=== PATIENT | male | born 1990 | race Caucasian/White ===

== ENCOUNTER 2019-10-17 19:43 | Emergency (ER) | payer SELFPAY ==
--- NOTE | 2019-10-17 19:57 | EDM.PDOC ---
ED HPI GENERAL MEDICAL PROBLEM - General Stated Complaint: GROIN PAIN Time Seen by Provider: 10/17/19 19:47 Source of Information: Reports: Patient History Limitations: Reports: No Limitations - History of Present Illness INITIAL COMMENTS - FREE TEXT/NARRATIVE: Mr. Parish is a very pleasant 29-year-old gentleman with no chronic medical problems, who now presents to the ED stating that he developed left scrotal discomfort this past Tuesday night/Tuesday morning, . He noticed that the scrotum appeared to be swollen on Tuesday, and both the pain and swelling have progressively gotten worse since. No known injury to the area. He has not had a fever, and he denies having any urinary symptoms. He states that he has taken Tylenol or Advil for the discomfort, but he has not physically done anything to the scrotum, such as ice packs or soaks. The patient went to the walk-in clinic today, but was sent here without any testing being done. No prior similar symptoms. Here in the ED, the patient's initial BP is found to be elevated at 173/91, with an HR of 103 bpm, otherwise, the patient is afebrile, saturating 96% on room air. Other than the scrotal issue, the patient denies recent fever, chills, sore throat, ear pain, nasal or sinus congestion, cough, dyspnea, chest pain, palpitations, nausea, vomiting, constipation, diarrhea, abdominal pain, urinary symptoms, recent weight gain or weight loss, recent bloody bowel movements or black bowel movements, recent joint aches, headaches, or rashes. The patient has been working here for the past 2 months, but lives in [place]. He does not have a PCP. Left Scrotum Pain Score (Numeric/FACES): 8 - Related Data Allergies Allergy/AdvReac Type Severity Reaction Status Date / Time No Known Allergies Allergy Verified 10/17/19 19:56 Home Meds: Home Meds . [No Known Home Meds] 10/17/19 [History] Past Medical History Musculoskeletal History: Reports: Fracture (right 5th metacarpal) - Past Surgical History Musculoskeletal Surgical History: Reports: Other (See Below) (Right 5th metacarpal pinning) Social & Family History - Tobacco Use Smoking Status *Q: Current Every Day Smoker Years of Tobacco use: 13 Packs/Tins Daily: 1 - Alcohol Use Alcohol Use History: Yes Alcohol Use Frequency: Socially (occasionally to excess) - Recreational Drug Use Recreational Drug Use: No - Living Situation & Occupation Living situation: Reports: Single, with Significant Other (Girlfriend), with Family (2 kids) Occupation: Employed ([employer]) ED ROS GENERAL - Review of Systems Review Of Systems: Comprehensive ROS is negative, except as noted in HPI. ED EXAM, RENAL/ - Physical Exam Exam: See Below Exam Limited By: No Limitations General Appearance: Alert, WD/WN, No Apparent Distress (Male) Exam: No Hernia, Circumcised, Scrotal Swelling (inferior left, extending towards the left perineum, approximately 4 cm in length x 2 cm wide. Mildly erythematous. Tender. Due to tenderness, unable to appreciate if fluctuant vs indurated. There is no testicular swelling or tenderness, either side.). No: Inguinal Lymphadenopathy, Testicular Mass, Testicular Tenderness (L), Testicular Tenderness (R) Course - Vital Signs Last Recorded V/S: Last Vital Signs Temp 36.4 C 10/17/19 19:48 Pulse 103 H 10/17/19 19:48 Resp 18 10/17/19 19:48 BP 173/91 H 10/17/19 19:48 Pulse Ox 96 10/17/19 19:48 - Orders/Labs/Meds Orders: Active Orders 24 hr Category Date Time Status cefTRIAXone [Rocephin] 250 mg Med 10/17/19 22:30 Active Lidocaine 1% [Xylocaine-MPF 1%] 2 ml IM ONETIME Medication Orders Ceftriaxone Sodium 250 mg/ (Lidocaine HCl) 2 mls @ 100 mls/hr IM ONETIME ONE Stop: 10/17/19 22:31 Last Admin: 10/17/19 22:22 Dose: 100 mls/hr Documented by: KSENIA Labs: Laboratory Tests 10/17/19 10/17/19 10/17/19 Range/Units 20:14 20:14 20:20 WBC 10.47 H (4.23-9.07) K/mm3 RBC 5.28 (4.63-6.08) M/mm3 Hgb 15.9 (13.7-17.5) gm/dl Hct 46.9 (40.1-51.0) % MCV 88.8 (79.0-92.2) fl MCH 30.1 (25.7-32.2) pg MCHC 33.9 (32.2-35.5) g/dl RDW Std Deviation 41.3 (35.1-43.9) fL Plt Count 255 (163-337) K/mm3 MPV 9.4 (9.4-12.3) fl Neutrophils % (Manual) 81 H (40-60) % Band Neutrophils % 0 (0-10) % Lymphocytes % (Manual) 15 L (20-40) % Atypical Lymphs % 0 % Monocytes % (Manual) 4 (2-10) % Eosinophils % (Manual) 0 L (0.8-7.0) % Basophils % (Manual) 0 L (0.2-1.2) Platelet Estimate Adequate RBC Morph Comment Normal Sodium 140 (136-145) mEq/L Potassium 4.4 (3.5-5.1) mEq/L Chloride 104 (98-107) mEq/L Carbon Dioxide 25 (21-32) mEq/L Anion Gap 15.4 H (5-15) BUN 12 (7-18) mg/dL Creatinine 1.1 (0.7-1.3) mg/dL Est Cr Clr Drug Dosing 98.19 mL/min Estimated GFR (MDRD) > 60 (>60) mL/min BUN/Creatinine Ratio 10.9 L (14-18) Glucose 90 (74-106) mg/dL Lactic Acid 1.3 (0.4-2.0) mmol/L Calcium 8.8 (8.5-10.1) mg/dL Total Bilirubin 0.6 (0.2-1.0) mg/dL AST 26 (15-37) U/L ALT 49 (16-63) U/L Alkaline Phosphatase 71 (46-116) U/L Creatine Kinase 190 (39-308) U/L C-Reactive Protein 2.4 H* (<1.0) mg/dL Total Protein 7.3 (6.4-8.2) g/dl Albumin 3.9 (3.4-5.0) g/dl Globulin 3.4 gm/dL Albumin/Globulin Ratio 1.2 (1-2) Meds: Medications Generic Name Dose Route Start Last Admin Trade Name Freq PRN Reason Stop Dose Admin Ceftriaxone Sodium 250 mg/ 2 mls @ 100 mls/hr 10/17/19 22:30 10/17/19 22:22 Lidocaine HCl IM 10/17/19 22:31 100 mls/hr ONETIME ONE Administration Discontinued Medications Generic Name Dose Route Start Last Admin Trade Name Roel PRN Reason Stop Dose Admin Azithromycin 1,000 mg 10/17/19 21:48 10/17/19 22:23 Zithromax PO 10/17/19 21:49 1,000 mg ONETIME STA Administration Ampicillin Sodium/Sulbactam 100 mls @ 200 mls/hr 10/17/19 21:02 10/17/19 21:21 Sodium 3 gm/ Sodium Chloride IV 10/17/19 21:31 200 mls/hr ONETIME STA Administration - Re-Assessments/Exams Free Text/Narrative Re-Assessment/Exam: 10/17/19 20:03 As above, the patient has a tender swelling to the inferior left aspect of his scrotum. Because of its tenderness, I was not able to appreciate whether or not there is fluctuance. The biggest concern would be for the development of Micheal gangrene. I have therefore ordered an ultrasound of the scrotum to evaluate, along with a CBC, CMP, CRP, CPK, and a lactic acid level. 10/17/19 20:59 Notified by the respiratory support technician that there appears to be a fluid pocket with debris in it, consistent with an abscess. No testicular abnormalities. The formal read from the Radiologist is still pending. 10/17/19 21:[address] Garcia at 20:59. He is also concerned about the possibility of the development of Micheal gangrene, and because incision and drainage could expose the teste, it would require drainage and possible debridement by a Urologist. He therefore recommended that we transfer the patient to [place]. In the meantime, he agreed with my suggestion that we start the patient on IV Unasyn. My concerns about Micheal gangrene and my discussion with Dr. Garcia discussed with the patient. The patient is agreeable to waiting for the lab and ultrasound results, and he is agreeable to receiving IV antibiotics here, however, he states that he needs to fly back to [place] tomorrow, and therefore he refused transfer to [place]. I expressed my concerns with the patient's decision, but I was unable to change his mind. 10/17/19 21:23 The patient's CBC is remarkable for a WBC count elevated at 10.47, but with 0% bandemia. The remainder of his CBC is unremarkable. His CMP is remarkable for an anion gap slightly elevated at 15.4, but with a bicarbonate normal at 25, and the remainder of his CMP being unremarkable. His lactic acid level is within normal limits at 1.3. His CPK is within normal limits at 190. His CRP is mildly elevated at 2.4. 10/17/19 21:26 Ultrasound of the scrotum and contents is read by Dr. Agustin as: 1. Findings compatible with left-sided epididymitis. Possible left epididymal abscess also present measuring 3.9 x 1.8 cm. 2. No intratesticular abnormality is seen. Normal blood flow within both testicles. 10/17/19 21:48 Case discussed with Rachel at [facility] at 21:28. Case then discussed with Dr. Butler, Urologist on-call at [facility], at 21:35. Although the patient's ultrasound is not consistent with his physical exam (clinically the patient does not have epididymitis), he recommended that we treat for both chlamydia and gonorrhea, and that I discharge him home with a prescription for Augmentin, along with a CD-ROM of his ultrasound images. He recommended that the patient contact a Urologist in [place] tomorrow morning, to make arrangements to be seen PAUL. I have ordered Rocephin 250 mg IM and azithromycin 1 g po. 10/17/19 21:58 Test results and my conversation with Dr. Butler discussed with the patient. The patient agreed to receive both the IM Rocephin and oral azithromycin. He will then be discharged home with prescriptions for both Augmentin and [place] via [facility]. He will be given a CD-ROM of his ultrasound images, along with instructions to contact a urologist to make an appointment to be seen as soon as possible. The patient agreed to all the above. Departure - Departure Time of Disposition: 21:59 Disposition: Home, Self-Care 01 Condition: Good Clinical Impression: Scrotal abscess - Discharge Information *PRESCRIPTION DRUG MONITORING PROGRAM REVIEWED*: Not Applicable *COPY OF PRESCRIPTION DRUG MONITORING REPORT IN PATIENT KATIE: Not Applicable Instructions: Skin Abscess, [id number] Referrals: PCP,Not In Area [Primary Care Provider] - Forms: ED Department Discharge Additional Instructions: You were seen in the emergency room for a painful swelling to the bottom left of your scrotum since 10/13/2019. Work-up in the ER included blood work and an ultrasound of your scrotum. The ultrasound found a condition called epididymitis, as well as an associated scrotal abscess, however, clinically, you do not have epididymitis, although you do have a scrotal abscess. Nevertheless, you were treated for epididymitis with oral azithromycin and IM Rocephin. You were also given IV Unasyn. Transfer to [place], to be evaluated by a Urologist, was recommended but refused. Your case was discussed with a Urologist in [place], who recommended that you follow-up with a Urologist in [place] as soon as possible. A CD-ROM of your ultrasound images have been provided to you. Take that, along with these discharge instructions, which include your lab results, to the Urologist. You have been prescribed the antibiotic Augmentin and the opioid pain medicine [place]. Take 1 tablet of Augmentin every 12 hours, starting tomorrow morning, , 10/18/2019, as prescribed. We recommend that you take [id number] ibuprofen, 3 tablets (600 mg) every 8 hours, with food, [id number]. You may take 1 to 2 tablets of [place] up to every 6 hours, as needed for pain not relieved by ibuprofen. If you take [place], do not drive or operate heavy machinery for 12 hours afterwards. [place] may cause constipation, so consider taking a stool softener. We recommend that you start looking for a Urologist in [place] as early as tomorrow morning, to get in to be seen as soon as possible. If any other problems, including if you change your mind and want to be evaluated by a Urologist in [place], please do not hesitate to return to the ER. Sepsis Event Note (ED) - Focused Exam Vital Signs: Vital Signs Temp Pulse Resp BP Pulse Ox 10/17/19 19:48 36.4 C 103 H 18 173/91 H 96 - My Orders Last 24 Hours: My Active Orders 10/17/19 22:30 cefTRIAXone [Rocephin] 250 mg Lidocaine 1% [Xylocaine-MPF 1%] 2 ml IM ONETIME - Assessment/Plan Last 24 Hours: My Active Orders 10/17/19 22:30 cefTRIAXone [Rocephin] 250 mg Lidocaine 1% [Xylocaine-MPF 1%] 2 ml IM ONETIME
[2019-10-17] MEDS ORDERED: Ampicillin/Sulbactam Na 3 GM in Sodium Chloride 0.9% 100 ML IV STA (21:02)
--- NOTE | 2019-10-17 21:24 | US ---
Testicular ultrasound: Multiple real-time images of the testicles were obtained. Both testicles have a homogeneous ultrasound appearance. Both arterial and venous blood flow are seen within the testicles. Right epididymis appears within normal limits. Abnormal left epididymis is noted with increased blood flow compatible with epididymitis. There is a focal hypoechoic area seen within the inferior and lateral scrotal region measuring 3.9 x 1.8 cm possibly due to more focal infection or abscess. Measurements: Right testicle: 4.6 x 2.0 x 3.2 cm Left testicle: 4.4 x 1.8 x 3.1 cm Impression: 1. Findings compatible with left-sided epididymitis. Possible left epididymal abscess also present measuring 3.9 x 1.8 cm. 2. No intratesticular abnormality is seen. Normal blood flow within both testicles. Diagnostic code #3 This report was dictated in MDT
[2019-10-17] MEDS ORDERED: cefTRIAXone 250 MG Vial IM STA (21:47)
[2019-10-17] MEDS ORDERED: Azithromycin 250 MG Tab PO STA (21:48)
[2019-10-17] MEDS ORDERED: cefTRIAXone 250 MG in Lidocaine 1% 2 ML IM ONE (22:30)
== END 2019-10-17 22:30 | disposition home or self-care (01) ==
LOC: JD.ED 19:43
DX: N49.2 Inflammatory disorders of scrotum (principal); F17.210 Nicotine dependence, cigarettes, uncomplicated
CPT/HCPCS: 36415; 76870; 80053; 82550; 83605; 85007; 85027; 86140; 93975; 96365; 96372; 99284; A9270; J0295; J0696; J2001; J7050; 99283